=== PATIENT | female | born 1955 | race Asian ===

== ENCOUNTER → 2019-11-03 10:11 | Outpatient (CLI) | payer OTHER, SELFPAY ==
--- NOTE | 2019-11-03 | DI.MG.S_ITS ---
BILATERAL DIGITAL SCREENING MAMMOGRAM 3D/2D WITH CAD: 11/03/2019 CLINICAL: Routine screening. Comparison is made to exams dated: 05/25/2018 mammogram, 04/01/2017 mammogram, and 02/04/2016 mammogram - [facility]. There are scattered fibroglandular elements in both breasts. Current study was also evaluated with a Computer Aided Detection (CAD) system. No significant masses, calcifications, or other findings are seen in either breast. There has been no significant interval change. IMPRESSION: NEGATIVE There is no mammographic evidence of malignancy. A 1 year screening mammogram is recommended. This exam was interpreted at Station ID: [id number]. NOTE: For mammograms, a report in lay terms will be sent to the patient. Approximately 15% of breast malignancies will not be visualized mammographically. In the management of a palpable breast mass, a negative mammogram must not discourage biopsy of a clinically suspicious lesion. Electronically Signed By: Vidhya stahl/abilio:11/03/2019 11:59:06 letter sent: Normal Exam ACR BI-RADS Category 1: Negative 3341F
== END ==
PROVIDERS: Referring Provider Family Medicine; Visit Provider Family Medicine
DX: Z12.31 Encounter for screening mammogram for malignant neoplasm of breast (principal)
CPT/HCPCS: 77063; 77067

== ENCOUNTER → 2020-11-16 09:11 | Outpatient (CLI) | payer OTHER, SELFPAY ==
--- NOTE | 2020-11-16 | DI.MG.S_ITS ---
BILATERAL DIGITAL SCREENING MAMMOGRAM 3D/2D WITH CAD: 11/16/2020 CLINICAL: Routine screening. Comparison is made to exams dated: 11/03/2019 mammogram - [facility], 05/25/2018 mammogram, and 04/01/2017 mammogram - [facility]. There are scattered fibroglandular elements in both breasts. Current study was also evaluated with a Computer Aided Detection (CAD) system. No significant masses, calcifications, or other findings are seen in either breast. There has been no significant interval change. IMPRESSION: NEGATIVE There is no mammographic evidence of malignancy. A 1 year screening mammogram is recommended. This exam was interpreted at Station ID: [id number]. NOTE: For mammograms, a report in lay terms will be sent to the patient. Approximately 15% of breast malignancies will not be visualized mammographically. In the management of a palpable breast mass, a negative mammogram must not discourage biopsy of a clinically suspicious lesion. Electronically Signed By: Keny mirza/abilio:11/19/2020 08:08:31 letter sent: Normal Exam ACR BI-RADS Category 1: Negative 3341F
== END ==
PROVIDERS: PCP Nurse Practitioner Family; Referring Provider Nurse Practitioner Family; Visit Provider Nurse Practitioner Family
DX: Z12.31 Encounter for screening mammogram for malignant neoplasm of breast (principal)
CPT/HCPCS: 77063; 77067

== ENCOUNTER → 2021-07-17 12:14 | Outpatient (CLI) | payer OTHER, SELFPAY ==
--- NOTE | 2021-07-17 | DI.MRI.S_ITS ---
PROCEDURE: MR KNEE RT WO CON INDICATIONS: RIGHT KNEE PAIN TECHNIQUE: Noncontrast sagittal PD fast spin echo and T2 fast spin echo with fat saturation, sagittal 3-D FLASH with fat saturation; coronal T1 spin echo and PD fast spin echo with fat saturation, and axial PD fast spin echo with fat saturation through the knee. COMPARISON: None. FINDINGS: Image quality: Excellent. Menisci: There is large complex tear involving the posterior horn and body of the medial meniscus. The lateral meniscus demonstrates normal morphology and internal signal. The meniscal root ligaments appear intact. Cruciate ligaments: The anterior and posterior cruciate ligaments appear intact. Medial structures: The medial collateral ligament appears intact. The semimembranosus tendon insertions and meniscocapsular junction appear intact. Visualized portions of the pes anserinus tendons appear normal. No abnormal bursal fluid. Lateral structures: The lateral collateral ligament, long and short heads of the biceps femoris tendon appear intact. The popliteus tendon appears normal. Iliotibial band appears normal. Anterior structures: The quadriceps and patellar tendons appear intact. Patellar alignment is normal. No femoral trochlear dysplasia or ventral trochlear prominence. No edema in the infrapatellar fat pad. Bones and cartilage: No bone marrow contusions or fractures. There is [id number] tricompartmental cartilage thinning and fibrillation. Joint space: There is small knee joint fluid. Multiple cysts posterior to the distal femur are most likely ganglion cysts or synovial cysts. Normal appearing synovial plicae are incidentally noted. IMPRESSION: 1. Large complex tear involving the posterior horn body of the medial meniscus. 2. [id number] tricompartmental cartilage thinning and fibrillation. 3. Small knee joint effusion. 3. Multiple ganglion cysts or synovial cysts posterior to the distal femur. Dictated by: Zaire Ramirez M.D. on 07/17/2021 at 13:13 Approved by: Zaire Ramirez M.D. on 07/17/2021 at 13:26
== END ==
PROVIDERS: Referring Provider Physician Assistant; Visit Provider Physician Assistant
DX: S83.231A Complex tear of medial meniscus, current injury, right knee, initial encounter (principal); M25.561 Pain in right knee; M25.461 Effusion, right knee
CPT/HCPCS: 73721

== ENCOUNTER → 2024-04-03 08:42 | Outpatient (CLI) | payer MEDICARE, OTHER, SELFPAY ==
--- NOTE | 2024-04-03 09:14 | DI.MRI.S_ITS ---
PROCEDURE: MR KNEE LT WO CON INDICATIONS: ACUTE PAIN LEFT KNEE TECHNIQUE: Noncontrast sagittal PD fast spin echo and T2 fast spin echo with fat saturation, sagittal 3-D FLASH with fat saturation; coronal T1 spin echo and PD fast spin echo with fat saturation, and axial PD fast spin echo with fat saturation through the knee. COMPARISON: [facility] Outside Film, CR, XR KNEE 3 VIEWS LEFT, 03/05/2024, 13:51. FINDINGS: Image quality: Excellent. Anterior cruciate ligament: Intact. Posterior cruciate ligament: Intact. Medial collateral ligament: Intact. Lateral collateral ligament: Intact. Medial meniscus: Intrasubstance signal in the body of the medial meniscus. There is suspected focal communication with the tibial articular surface. Lateral meniscus: Small focal vertical longitudinal tear of the anterior root attachment of the lateral meniscus without meniscal extrusion. Medial and lateral tendons: The semimembranosus tendon insertions appear intact. Visualized portions of the pes anserinus tendons appear normal. The popliteus tendon is intact. Iliotibial band appears normal. Anterior structures: The quadriceps and patellar tendons appear intact. No patellar subluxation. No femoral trochlear dysplasia or ventral trochlear prominence. No edema in the infrapatellar fat pad. Bones: No bone marrow contusions or fractures. Medial femorotibial cartilage: Moderate grade partial-thickness cartilage thinning and surface irregularity in the weight-bearing portion of the medial femorotibial compartment. Lateral femorotibial cartilage: Full-thickness cartilage loss at the far posterior nonupright weight-bearing portion of the lateral femoral condyle with subchondral edema and subchondral cystic changes. Patellofemoral cartilage: Deep cartilage fissuring at the medial patellar facet with focal subchondral cystic changes. Diffuse background moderate partial-thickness cartilage irregularity. Soft tissues: Small joint effusion. Trace medial popliteal cyst. The visualized musculature is normal in bulk. IMPRESSION: 1. Intrasubstance degeneration and suspected horizontal oblique tearing at the body of the medial meniscus extending to the tibial articular surface. 2. Small focal vertical longitudinal tear at the anterior root attachment of the lateral meniscus without meniscal extrusion. 3. Moderately-sized area of full-thickness cartilage loss of the far posterior portion of the lateral femoral condyle with subchondral cystic changes and subchondral edema. 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 4. No acute trabecular bone injury. Cruciate and collateral ligaments are intact. 5. Small joint effusion. Approved by: Keny Sanchez M.D. on 04/03/2024 at 14:21
== END ==
PROVIDERS: Referring Provider Physician Assistant; Visit Provider Physician Assistant
DX: S83.282A Other tear of lateral meniscus, current injury, left knee, initial encounter (principal); M94.262 Chondromalacia, left knee; M25.462 Effusion, left knee; M25.562 Pain in left knee
CPT/HCPCS: 73721